=== PATIENT | male | born 1960 | race Caucasian/White ===

== ENCOUNTER 2020-04-04 07:17 | Day surgery (SDC) | payer OTHER, SELFPAY ==
[~2020-04-04] VITALS: Ht 167.6 cm; Wt 133.4 kg
[2020-04-04] MEDS: MEPERIDINE HCL/PF 100 MG/ML AMP ONE ×2 (09:27→09:31)
[2020-04-04] MEDS: MIDAZOLAM HCL 5 MG/5 ML VIAL ONE ×3 (09:27→09:31)
[2020-04-04] MEDS ORDERED: MIDAZOLAM HCL 5 MG/5 ML VIAL ONE (09:35)
[2020-04-04 10:25] VITALS: BP_SYST 130
== END 2020-04-04 11:30 | disposition home or self-care (01) ==
LOC: SDS 07:17 → SMU 07:21 → SDS 11:30
PROVIDERS: ATTEND Colon & Rectal Surgery
DX: R19.5 Other fecal abnormalities (principal); D12.5 Benign neoplasm of sigmoid colon; I10 Essential (primary) hypertension; E11.9 Type 2 diabetes mellitus without complications; Z11.59 Encounter for screening for other viral diseases
CPT/HCPCS: 45380; 45381; 45385; 88305; G0378; J2175; J2250; J7030; U0003; 45384